=== PATIENT | female | born 1950 ===

== ENCOUNTER 2025-05-14 03:36 | Outpatient (CLI) | payer MEDICARE, SELFPAY ==
[2025-05-14 12:18] LABS: Abs Immature Grans 0.01 10^3/uL (0.0-0.06); Absolute Basophil Count 0.05 10^3/uL (0.0-0.2); Absolute Eosinophil Count 0.15 10^3/uL (0.0-0.7); Absolute Monocyte Count 0.67 10^3/uL (0.1-0.8); Absolute Neutrophil Count 4.24 10^3/uL (1.2-6.7); Basophils % 0.7 %; Eosinophils % 2.1 %; HGB 12.9 g/dL (11.2-15.7); Immature Grans % 0.1 %; Lymphocytes % 28.1 %; MCH 30.4 pg (27.0-33.0); MCHC 33.1 % (32.0-36.0); MCV 92 fL (80-95); MPV 10.2 fL (8.0-11.0); Monocytes % 9.4 %; Neutrophils % 59.6 %; Platelet Count 236 10^3/uL (130-400); RBC 4.25 10^6/uL (3.93-5.22); RDW 15.1 % (11.7-14.6); RDW-SD 51.6 fL; WBC 7.12 10^3/uL (4.4-10.8)
[2025-05-14 12:51] LABS: ALT 115 U/L (14-59); AST 72 U/L (15-37); Albumin 3.2 g/dL (3.4-5.0); Alkaline Phosphatase 102 U/L (46-116); Anion Gap 9.1 mmol/L (3-11); BUN 28 mg/dL (7-18); Bilirubin, Total 0.5 mg/dL (0.2-1.0); CO2 28.9 mmol/L (21.0-32.0); CREATININE 0.8 mg/dL (0.55-1.02); Calcium 9.1 mg/dL (8.5-10.1); Chloride 103 mmol/L (98-107); Estimated GFR 77.75 (mL/min/1.73m2); Glucose 89 mg/dL (74-106); Magnesium 1.9 mg/dL (1.8-2.4); Potassium 4.2 mmol/L (3.5-5.1); Sodium 141 mmol/L (136-145); TSH 2.63 uIU/mL (0.36-3.74); Total Protein 7.5 g/dL (6.4-8.2)
== END 2025-05-14 03:37 | disposition home or self-care (01) ==
LOC: LBO 03:36
PROVIDERS: Visit Provider Internal Medicine Medical Oncology
DX: Z79.899 Other long term (current) drug therapy (principal); J91.0 Malignant pleural effusion; C79.51 Secondary malignant neoplasm of bone; C34.92 Malignant neoplasm of unspecified part of left bronchus or lung
CPT/HCPCS: 36415; 80053; 83735; 84439; 84443; 85025

== ENCOUNTER 2025-06-11 03:45 | Outpatient (CLI) | payer MEDICARE, SELFPAY ==
[2025-06-11 13:46] LABS: Abs Immature Grans 0.03 10^3/uL (0.0-0.06); HCT 34.8 % (36.0-46.0); HGB 11.6 g/dL (11.2-15.7); Immature Grans % 0.5 %; MCH 30.9 pg (27.0-33.0); MCHC 33.3 % (32.0-36.0); MCV 93 fL (80-95); MPV 9.0 fL (8.0-11.0); Platelet Count 311 10^3/uL (130-400); RBC 3.75 10^6/uL (3.93-5.22); RDW 15.0 % (11.7-14.6); RDW-SD 51.2 fL; WBC 6.43 10^3/uL (4.4-10.8)
[2025-06-11 14:11] LABS: ALT 24 U/L (14-59); AST 32 U/L (15-37); Albumin 2.3 g/dL (3.4-5.0); Alkaline Phosphatase 82 U/L (46-116); Anion Gap 5.2 mmol/L (3-11); BUN 21 mg/dL (7-18); Bilirubin, Total 0.3 mg/dL (0.2-1.0); CO2 29.8 mmol/L (21.0-32.0); Calcium 8.5 mg/dL (8.5-10.1); Chloride 102 mmol/L (98-107); Estimated GFR 91.26 (mL/min/1.73m2); Glucose 103 mg/dL (74-106); Magnesium 1.9 mg/dL (1.8-2.4); Potassium 4.0 mmol/L (3.5-5.1); Sodium 137 mmol/L (136-145); TSH 7.97 uIU/mL (0.36-3.74); Total Protein 6.5 g/dL (6.4-8.2)
[2025-06-11 22:30] LABS: CEA 60.2 ng/mL (See Note)
== END 2025-06-11 03:46 | disposition home or self-care (01) ==
PROVIDERS: Visit Provider Internal Medicine Medical Oncology
DX: Z79.899 Other long term (current) drug therapy (principal); C34.92 Malignant neoplasm of unspecified part of left bronchus or lung; J91.0 Malignant pleural effusion; C79.51 Secondary malignant neoplasm of bone
CPT/HCPCS: 36415; 80053; 82378; 83735; 84439; 84443; 85025

== ENCOUNTER 2025-07-02 03:48 | Outpatient (CLI) | payer MEDICARE, SELFPAY ==
[2025-07-02 10:05] LABS: Abs Immature Grans 0.02 10^3/uL (0.0-0.06); HCT 38.1 % (36.0-46.0); HGB 12.5 g/dL (11.2-15.7); Immature Grans % 0.3 %; MCH 30.9 pg (27.0-33.0); MCHC 32.8 % (32.0-36.0); MCV 94 fL (80-95); MPV 9.4 fL (8.0-11.0); Platelet Count 249 10^3/uL (130-400); RBC 4.04 10^6/uL (3.93-5.22); RDW 15.3 % (11.7-14.6); RDW-SD 53.6 fL; WBC 7.36 10^3/uL (4.4-10.8)
[2025-07-02 10:32] LABS: ALT 24 U/L (14-59); AST 38 U/L (15-37); Albumin 2.7 g/dL (3.4-5.0); Alkaline Phosphatase 77 U/L (46-116); Anion Gap 4.5 mmol/L (3-11); BUN 22 mg/dL (7-18); Bilirubin, Total 0.5 mg/dL (0.2-1.0); CO2 30.5 mmol/L (21.0-32.0); Calcium 9.4 mg/dL (8.5-10.1); Chloride 103 mmol/L (98-107); Estimated GFR 67.50 (mL/min/1.73m2); Glucose 80 mg/dL (74-106); Magnesium 1.6 mg/dL (1.8-2.4); Potassium 3.4 mmol/L (3.5-5.1); Sodium 138 mmol/L (136-145); TSH 6.06 uIU/mL (0.36-3.74); Total Protein 7.0 g/dL (6.4-8.2)
[2025-07-02 19:42] LABS: CEA 48.9 ng/mL (See Note)
== END 2025-07-02 03:49 | disposition home or self-care (01) ==
LOC: LBO 03:48
PROVIDERS: Visit Provider Internal Medicine Medical Oncology
DX: Z79.899 Other long term (current) drug therapy (principal); J91.0 Malignant pleural effusion; C34.92 Malignant neoplasm of unspecified part of left bronchus or lung
CPT/HCPCS: 36415; 80053; 82378; 83735; 84439; 84443; 85025

== ENCOUNTER 2025-07-22 04:32 | Outpatient (CLI) | payer MEDICARE, SELFPAY ==
[2025-07-22 09:19] LABS: Abs Immature Grans 0.03 10^3/uL (0.0-0.06); HCT 37.9 % (36.0-46.0); HGB 12.9 g/dL (11.2-15.7); Immature Grans % 0.3 %; MCH 32.6 pg (27.0-33.0); MCHC 34.0 % (32.0-36.0); MCV 96 fL (80-95); MPV 9.1 fL (8.0-11.0); Platelet Count 338 10^3/uL (130-400); RBC 3.96 10^6/uL (3.93-5.22); RDW 15.0 % (11.7-14.6); RDW-SD 53.3 fL; WBC 10.52 10^3/uL (4.4-10.8)
[2025-07-22 09:56] LABS: ALT 26 U/L (14-59); AST 39 U/L (15-37); Albumin 2.4 g/dL (3.4-5.0); Alkaline Phosphatase 69 U/L (46-116); Anion Gap 5.6 mmol/L (3-11); BUN 21 mg/dL (7-18); Bilirubin, Total 0.4 mg/dL (0.2-1.0); CO2 31.4 mmol/L (21.0-32.0); Calcium 8.7 mg/dL (8.5-10.1); Chloride 104 mmol/L (98-107); Estimated GFR 77.75 (mL/min/1.73m2); Glucose 96 mg/dL (74-106); Magnesium 1.9 mg/dL (1.8-2.4); Potassium 4.2 mmol/L (3.5-5.1); Sodium 141 mmol/L (136-145); Total Protein 6.5 g/dL (6.4-8.2)
[2025-07-22 18:22] LABS: CEA 40.0 ng/mL (See Note)
== END 2025-07-22 04:33 | disposition home or self-care (01) ==
LOC: LBO 04:32
PROVIDERS: Visit Provider Internal Medicine Medical Oncology
DX: Z79.899 Other long term (current) drug therapy (principal); C34.92 Malignant neoplasm of unspecified part of left bronchus or lung
CPT/HCPCS: 36415; 80053; 82378; 83735; 84439; 85025

== ENCOUNTER 2025-08-12 01:43 | Outpatient (CLI) | payer MEDICARE, SELFPAY ==
[2025-08-12 10:56] LABS: Abs Immature Grans 0.03 10^3/uL (0.0-0.06); HCT 37.3 % (36.0-46.0); HGB 12.4 g/dL (11.2-15.7); Immature Grans % 0.4 %; MCH 31.7 pg (27.0-33.0); MCHC 33.2 % (32.0-36.0); MCV 95 fL (80-95); MPV 9.3 fL (8.0-11.0); Platelet Count 288 10^3/uL (130-400); RBC 3.91 10^6/uL (3.93-5.22); RDW 14.6 % (11.7-14.6); RDW-SD 51.2 fL; WBC 8.48 10^3/uL (4.4-10.8)
[2025-08-12 11:43] LABS: ALT 29 U/L (14-59); AST 45 U/L (15-37); Albumin 2.3 g/dL (3.4-5.0); Alkaline Phosphatase 77 U/L (46-116); Anion Gap 7.2 mmol/L (3-11); BUN 15 mg/dL (7-18); Bilirubin, Total 0.4 mg/dL (0.2-1.0); CO2 27.8 mmol/L (21.0-32.0); Calcium 8.1 mg/dL (8.5-10.1); Chloride 104 mmol/L (98-107); Estimated GFR 77.75 (mL/min/1.73m2); Glucose 86 mg/dL (74-106); Magnesium 1.8 mg/dL (1.8-2.4); Potassium 3.7 mmol/L (3.5-5.1); Sodium 139 mmol/L (136-145); TSH 20.97 uIU/mL (0.36-3.74); Total Protein 6.1 g/dL (6.4-8.2)
== END 2025-08-12 01:44 | disposition home or self-care (01) ==
PROVIDERS: Visit Provider Internal Medicine Medical Oncology
DX: Z79.899 Other long term (current) drug therapy (principal); J91.0 Malignant pleural effusion
CPT/HCPCS: 36415; 80053; 83735; 84439; 84443; 85025; 93970

== ENCOUNTER 2025-08-12 13:16 | Outpatient (CLI) | payer MEDICARE, SELFPAY ==
--- NOTE | 2025-08-12 | DI.US_ITS ---
Exam(s) US EXTREMITY VENOUS BI EXAM: US EXTREMITY VENOUS BI CLINICAL HISTORY: STAGE IV CA, NEW BILAT LOWER EXT SWELLING,? DVT,R60.0. TECHNIQUE: Bilateral lower extremity venous ultrasound performed using grayscale, color-flow, and spectral Doppler analysis. COMPARISON: No exams were available for comparison FINDINGS: The right common femoral, femoral and popliteal veins demonstrate normal compressibility, augmentation, and color Doppler. The posterior tibial and peroneal veins are patent. The saphenofemoral junction is unremarkable. There is no evidence of a Jacobsen's cyst. The soft tissues are unremarkable. The left common femoral, femoral and popliteal veins demonstrate normal compressibility, augmentation, and color Doppler. The posterior tibial and peroneal veins are patent. The saphenofemoral junction is unremarkable. There is no evidence of a Jacobsen's cyst. The soft tissues are unremarkable. IMPRESSION: 1. No evidence of a right lower extremity DVT. 2. No evidence of a left lower extremity DVT. DATA REPOSITORY:
== END 2025-08-12 13:36 ==
LOC: DI 09-27 13:16
PROVIDERS: Visit Provider Nurse Practitioner Family
DX: R60.0 Localized edema (principal)
CPT/HCPCS: 93970

== ENCOUNTER 2025-09-02 03:39 | Outpatient (CLI) | payer MEDICARE, SELFPAY ==
[2025-09-02 09:26] LABS: Abs Immature Grans 0.05 10^3/uL (0.0-0.06); HCT 37.2 % (36.0-46.0); HGB 12.7 g/dL (11.2-15.7); Immature Grans % 0.6 %; MCH 31.6 pg (27.0-33.0); MCHC 34.1 % (32.0-36.0); MCV 93 fL (80-95); MPV 9.4 fL (8.0-11.0); Platelet Count 253 10^3/uL (130-400); RBC 4.02 10^6/uL (3.93-5.22); RDW 13.9 % (11.7-14.6); RDW-SD 47.1 fL; WBC 8.91 10^3/uL (4.4-10.8)
[2025-09-02 10:15] LABS: ALT 29 U/L (14-59); AST 46 U/L (15-37); Albumin 2.1 g/dL (3.4-5.0); Alkaline Phosphatase 85 U/L (46-116); Anion Gap 6.3 mmol/L (3-11); BUN 16 mg/dL (7-18); Bilirubin, Total 0.4 mg/dL (0.2-1.0); CO2 30.7 mmol/L (21.0-32.0); Calcium 7.1 mg/dL (8.5-10.1); Chloride 101 mmol/L (98-107); Estimated GFR 77.75 (mL/min/1.73m2); Glucose 88 mg/dL (74-106); Magnesium 1.8 mg/dL (1.8-2.4); Sodium 138 mmol/L (136-145); TSH 11.85 uIU/mL (0.36-3.74); Total Protein 5.4 g/dL (6.4-8.2)
[2025-09-02 10:31] LABS: Potassium 2.9 mmol/L (3.5-5.1)
[2025-09-02 18:06] LABS: CEA 41.4 ng/mL (See Note)
== END 2025-09-02 03:40 | disposition home or self-care (01) ==
LOC: LBO 03:40
PROVIDERS: Visit Provider Internal Medicine Medical Oncology
DX: J91.0 Malignant pleural effusion (principal); C34.92 Malignant neoplasm of unspecified part of left bronchus or lung
CPT/HCPCS: 36415; 80053; 82378; 83735; 84439; 84443; 85025

== ENCOUNTER 2025-09-05 04:04 | Outpatient (CLI) | payer MEDICARE, SELFPAY ==
[2025-09-05 09:17] LABS: Abs Immature Grans 0.08 10^3/uL (0.0-0.06); HCT 45.1 % (36.0-46.0); HGB 15.3 g/dL (11.2-15.7); Immature Grans % 0.6 %; MCH 32.1 pg (27.0-33.0); MCHC 33.9 % (32.0-36.0); MCV 95 fL (80-95); MPV 9.4 fL (8.0-11.0); Platelet Count 291 10^3/uL (130-400); RBC 4.76 10^6/uL (3.93-5.22); RDW 14.0 % (11.7-14.6); RDW-SD 48.7 fL; WBC 13.47 10^3/uL (4.4-10.8)
[2025-09-05 09:45] LABS: ALT 34 U/L (14-59); AST 50 U/L (15-37); Albumin 2.4 g/dL (3.4-5.0); Alkaline Phosphatase 97 U/L (46-116); Anion Gap 6.8 mmol/L (3-11); BUN 15 mg/dL (7-18); Bilirubin, Total 0.6 mg/dL (0.2-1.0); CO2 28.2 mmol/L (21.0-32.0); Calcium 8.3 mg/dL (8.5-10.1); Chloride 103 mmol/L (98-107); Estimated GFR 77.75 (mL/min/1.73m2); Glucose 96 mg/dL (74-106); Magnesium 1.8 mg/dL (1.8-2.4); Potassium 3.1 mmol/L (3.5-5.1); Sodium 138 mmol/L (136-145); Total Protein 6.3 g/dL (6.4-8.2)
== END 2025-09-05 04:05 | disposition home or self-care (01) ==
LOC: LBO 04:05
PROVIDERS: Visit Provider Internal Medicine Medical Oncology
DX: C34.92 Malignant neoplasm of unspecified part of left bronchus or lung (principal)
CPT/HCPCS: 36415; 80053; 83735; 85025

== ENCOUNTER 2025-09-23 03:04 | Outpatient (CLI) | payer MEDICARE, SELFPAY ==
[2025-09-23 09:45] LABS: Abs Immature Grans 0.05 10^3/uL (0.0-0.06); HCT 43.9 % (36.0-46.0); HGB 14.5 g/dL (11.2-15.7); Immature Grans % 0.7 %; MCH 30.8 pg (27.0-33.0); MCHC 33.0 % (32.0-36.0); MCV 93 fL (80-95); MPV 9.1 fL (8.0-11.0); Platelet Count 292 10^3/uL (130-400); RBC 4.71 10^6/uL (3.93-5.22); RDW 13.7 % (11.7-14.6); RDW-SD 46.8 fL; WBC 7.66 10^3/uL (4.4-10.8)
[2025-09-23 10:14] LABS: ALT 35 U/L (14-59); AST 58 U/L (15-37); Albumin 2.1 g/dL (3.4-5.0); Alkaline Phosphatase 110 U/L (46-116); Anion Gap 4.2 mmol/L (3-11); BUN 12 mg/dL (7-18); Bilirubin, Total 0.5 mg/dL (0.2-1.0); CO2 29.8 mmol/L (21.0-32.0); Calcium 7.7 mg/dL (8.5-10.1); Chloride 102 mmol/L (98-107); Estimated GFR 67.50 (mL/min/1.73m2); Glucose 88 mg/dL (74-106); Magnesium 2.0 mg/dL (1.8-2.4); Potassium 4.4 mmol/L (3.5-5.1); Sodium 136 mmol/L (136-145); TSH 25.87 uIU/mL (0.36-3.74); Total Protein 5.8 g/dL (6.4-8.2)
[2025-09-23 21:45] LABS: CEA 62.7 ng/mL (See Note)
== END 2025-09-23 03:05 | disposition home or self-care (01) ==
LOC: LBO 03:04
PROVIDERS: Visit Provider Internal Medicine Medical Oncology
DX: Z79.899 Other long term (current) drug therapy (principal); J91.0 Malignant pleural effusion; C34.92 Malignant neoplasm of unspecified part of left bronchus or lung
CPT/HCPCS: 36415; 80053; 82378; 83735; 84439; 84443; 85025

== ENCOUNTER 2025-10-15 03:32 | Outpatient (CLI) | payer MEDICARE, SELFPAY ==
[2025-10-15 12:27] LABS: Abs Immature Grans 0.04 10^3/uL (0.0-0.06); HCT 40.5 % (36.0-46.0); HGB 13.7 g/dL (11.2-15.7); Immature Grans % 0.5 %; MCH 31.0 pg (27.0-33.0); MCHC 33.8 % (32.0-36.0); MCV 92 fL (80-95); MPV 9.0 fL (8.0-11.0); Platelet Count 282 10^3/uL (130-400); RBC 4.42 10^6/uL (3.93-5.22); RDW 14.2 % (11.7-14.6); RDW-SD 47.4 fL; WBC 7.93 10^3/uL (4.4-10.8)
[2025-10-15 12:35] LABS: Magnesium 1.6 mg/dL (1.6-2.6)
[2025-10-15 12:37] LABS: ALT 42 U/L (10-49); AST 61 U/L (<34); Albumin 2.7 g/dL (3.4-5.0); Alkaline Phosphatase 104 U/L (46-116); Anion Gap 4.5 mmol/L (3-11); BUN 15 mg/dL (9-23); Bilirubin, Total 0.40 mg/dL (0.2-1.2); CO2 29.5 mmol/L (20.0-31.0); Calcium 7.9 mg/dL (8.3-10.6); Chloride 107 mmol/L (98-107); Glucose 84 mg/dL (74-106); Potassium 4.5 mmol/L (3.5-5.1); Sodium 141 mmol/L (136-145); Total Protein 5.3 g/dL (5.7-8.2)
[2025-10-15 12:40] LABS: TSH 0.36 uIU/mL (0.55-4.78)
[2025-10-16 13:47] LABS: CEA 58.5 ng/mL (See Note)
== END 2025-10-15 03:33 | disposition home or self-care (01) ==
LOC: LBO 03:32
PROVIDERS: Visit Provider Internal Medicine Medical Oncology
DX: Z79.899 Other long term (current) drug therapy (principal); J91.0 Malignant pleural effusion; C34.92 Malignant neoplasm of unspecified part of left bronchus or lung; C79.51 Secondary malignant neoplasm of bone
CPT/HCPCS: 36415; 80053; 82378; 83735; 84439; 84443; 85025

== ENCOUNTER 2025-11-04 01:22 | Outpatient (CLI) | payer MEDICARE, SELFPAY ==
[2025-11-04 12:47] LABS: Abs Immature Grans 0.02 10^3/uL (0.0-0.06); HCT 35.6 % (36.0-46.0); HGB 12.0 g/dL (11.2-15.7); Immature Grans % 0.3 %; MCH 31.7 pg (27.0-33.0); MCHC 33.7 % (32.0-36.0); MCV 94 fL (80-95); MPV 8.8 fL (8.0-11.0); Platelet Count 319 10^3/uL (130-400); RBC 3.78 10^6/uL (3.93-5.22); RDW 15.6 % (11.7-14.6); RDW-SD 53.9 fL; WBC 6.35 10^3/uL (4.4-10.8)
[2025-11-04 13:02] LABS: Magnesium 1.7 mg/dL (1.6-2.6)
[2025-11-04 13:03] LABS: ALT 28 U/L (10-49); AST 50 U/L (<34); Albumin 3.1 g/dL (3.2-5.0); Alkaline Phosphatase 83 U/L (46-116); Anion Gap 6.4 mmol/L (3-11); BUN 17 mg/dL (9-23); Bilirubin, Total 0.50 mg/dL (0.2-1.2); CO2 29.6 mmol/L (20.0-31.0); Calcium 8.2 mg/dL (8.3-10.6); Chloride 106 mmol/L (98-107); Glucose 99 mg/dL (74-106); Potassium 3.6 mmol/L (3.5-5.1); Sodium 142 mmol/L (136-145); Total Protein 5.8 g/dL (5.7-8.2)
[2025-11-04 13:06] LABS: TSH 2.77 uIU/mL (0.55-4.78)
[2025-11-05 00:43] LABS: CEA 65.6 ng/mL (See Note)
== END 2025-11-04 01:23 | disposition home or self-care (01) ==
LOC: LBO 01:22
PROVIDERS: Visit Provider Internal Medicine Medical Oncology
DX: Z79.899 Other long term (current) drug therapy (principal); J91.0 Malignant pleural effusion; C34.92 Malignant neoplasm of unspecified part of left bronchus or lung; C79.51 Secondary malignant neoplasm of bone
CPT/HCPCS: 36415; 80053; 82378; 83735; 84439; 84443; 85025